=== PATIENT | female | born 1990 | race Caucasian/White ===

== ENCOUNTER 2023-10-21 13:30 | Emergency (ER) | payer BC, SELFPAY ==
[2023-10-21 13:38] VITALS: BP 129/90
[2023-10-21 13:47] VITALS: BMI 20.4
[2023-10-21 14:11] LABS: % Basophils 0.3 % (0-2); % Eosinophils 0.1 % (0-6); % Immature Granulocytes 0.5 % (0-0.5); % Lymphocytes 15.1 % (20.5-51.1); % Monocytes 4.4 % (1.7-9.3); % Neutrophils 79.6 % (42.2-75.2); Absolute Immature Granulocytes 0.1 10^3/uL (0-0.05); Absolute Lymphocytes 1.7 10^3/uL (1.2-3.4); Absolute Monocytes 0.5 10^3/uL (0.1-0.6); Hematocrit 39.7 % (37.0-47.0); Hemoglobin 13.4 g/dL (12.0-16.0); Mean Corp Hgb Conc. 33.8 g/dL (33.0-37.0); Mean Corpuscular Hgb 30.7 pg (27.0-31.0); Mean Corpuscular Volume 91.1 fL (81.0-99.0); Mean Platelet Volume 10.5 fL (7.4-10.4); Nucleated Red Blood Cells % 0 %; Platelet Count 248 10^3/uL (130-400); Red Blood Cell Count 4.36 10^6/uL (4.20-5.40); Red Cell Dist. Width 12.5 % (11.5-14.5); White Blood Cell Count 11.3 10^3/uL (4.8-10.8)
[2023-10-21 14:21] LABS: Urine Albumin Trace (Neg - Trace); Urine Bilirubin Negative (Negative); Urine Character Clear (Clear); Urine Glucose Negative (Negative); Urine Ketone 3+ (Negative); Urine Leukocyte 2+ (Negative); Urine Nitrite Positive (Negative); Urine Occult Blood 3+ (Negative); Urine Urobilinogen Negative (Neg - 1+)
[2023-10-21 14:36] LABS: Urine Color Yellow
[2023-10-21 15:09] LABS: HCG, Serum Qualitative Screen Negative; Urine Bacteria Many (Negative); Urine Red Blood Cell 26-30 /HPF (0-2); Urine White Cell >100 /HPF (0-5)
[2023-10-21 15:42] LABS: ALT (SGPT) 17 U/L (0-35); AST (SGOT) 30 U/L (14-36); Albumin 4.6 g/dl (3.5-5.0); Alkaline Phosphatase 75 U/L (38-126); Blood Urea Nitrogen 14 mg/dl (7-17); Calcium 9.5 mg/dl (8.4-10.2); Carbon Dioxide 22 mmol/L (22-30); Chloride 103 mmol/L (98-107); Estimated Creatinine Clearance 97 ml/min; Glucose 79 mg/dl (70-99); Sodium 140 mmol/L (135-145); Total Bilirubin 0.9 mg/dl (0.2-1.3); Total Protein 7.4 g/dl (6.3-8.2); eGFR > 60.00
--- NOTE | 2023-10-21 15:45 | ED.GENMED ---
History of Present Illness
General
Chief Complaint: Abdominal Pain
Time Seen by Provider: 10/21/23 15:09
History of Present Illness
History of Present Illness:
Patient is a 33-year-old woman who is otherwise healthy presenting to the emergency department with pelvic pain. Patient states for the past 2 days she has been having pelvic pressure. Has been constant. She thought was beginning of a UTI so she
did take Azo. She also took Motrin with significant relief. She is having some urinary urgency. Her last period was on September 30. No fevers or chills. No nausea no vomiting. No vaginal discharge. She is a sexually active with her only.
She went to medical aid unit today who checked her urine and said it was negative for UTI. They were worried about her ovaries and told her to come to the emergency department for further evaluation. Patient states that the pain is back to being
midline. She denies any right lower left lower quadrant pain. This is never happened to her before. No spasming sensation.
Phy Exam
Physical Exam
Physical Exam:
GENERAL: in no acute distress
HEENT: normocephalic, extraocular movements intact, moist oral mucosa
NECK: normal inspection
RESPIRATORY: no respiratory distress, clear to auscultation bilaterally
CARDIOVASCULAR: regular rate and rhythm
ABDOMEN/: soft, non-distended, suprapubic tenderness no rebound or guarding, left CVA tenderness
EXTREMITIES: non-tender, no edema/swelling
NEUROLOGIC: awake and alert, moves all extremities
SKIN: warm
Course
Orders/Labs/Results
Orders:
Orders
10/21/23 13:41
Test Result ONCE
10/21/23 14:03
Complete Blood Count/With Diff Urgent
Comprehensive Metabolic Panel Urgent
HCG, Serum Qualitative Screen Urgent
Urinalysis Reflex To Culture Urgent
Date Specimen was Collected: 10/21/23
Time Specimen was Collected: 13:56
Urine Microscopic Reflex Cult Urgent
Urine Culture Urgent
ANDRES Source: U
Specimen Description:
Date Specimen was Collected: 10/21/23
Time Specimen was Collected: 13:56
10/21/23 15:19
CT Abd/pelvis W Iv Cont Urgent
Comment:
Reason For Exam: cva tenderness, urinary symptoms
10/21/23 17:29
Cephalexin Monohydrate [Keflex] 500 mg PO NOW STA
Abnormal Lab Results
10/21/23
14:03
WBC 11.3 H 10^3/uL
(4.8-10.8)
MPV 10.5 H fL
(7.4-10.4)
Abs Immat Gran (auto) 0.1 H 10^3/uL
(0-0.05)
Absolute Neuts (auto) 9.0 H 10^3/uL
(1.4-6.5)
Neutrophils % 79.6 H %
(42.2-75.2)
Lymphocytes % 15.1 L %
(20.5-51.1)
Urine Ketones 3+ A
(Negative)
Ur Occult Blood Reflex 3+ A
(Negative)
Urine Nitrite (Reflex) Positive A
(Negative)
Leukocyte Esterase Rfl 2+ A
(Negative)
Urine RBC 26-30 A /HPF
(0-2)
Urine WBC (Reflex) >100 A /HPF
(0-5)
Urine Bacteria (Reflex) Many A
(Negative)
10/21/23 14:03
10/21/23 14:03
Vital Signs
Initial and Last Documented VS:
Initial Vital Signs
Temp Pulse Resp BP Pulse Ox
98.7 F 95 18 129/90 98
10/21/23 13:38 10/21/23 13:38 10/21/23 13:38 10/21/23 13:38 10/21/23 13:38
Last Documented Vital Signs
Temp Pulse Resp BP Pulse Ox
98.7 F 83 16 125/79 97
10/21/23 13:38 10/21/23 16:09 10/21/23 16:09 10/21/23 16:09 10/21/23 16:09
MDM/Problems Addressed
Differential Diagnosis Includes:
Patient is a 33-year-old woman who is otherwise healthy presenting to the emergency department 2 days of pelvic pain. Vitals here are notable for being afebrile. Exam does show suprapubic tenderness with left-sided CVA tenderness. Differential
consists of UTI versus Dat versus kidney stone versus . Considered ovarian pathology however less likely given that the pain is mostly suprapubic. Will obtain bladder including test urine. After shared decision making we will
obtain CT to evaluate kidney stone. Will hold off on pelvic ultrasound. I did offer pain medication however patient denied this time.
*Critical Care Note
Total Time (30-74mins, 75-104mins- exclusive of procedures): Not Applicable
Update Note
Update Note:
CT scan negative. On reevaluation patient resting comfortably. Pain has much improved. Urine does not appear infected. Will treat as UTI with Keflex. Will give first dose of antibiotics here. Strict return precautions given
ED Attending Note
-
Portions of this chart may have been created with voice recognition software.� Occasional wrong word or��sound alike� substitutions may have occurred due to the inherent limitations of voice recognition software.
Discharge Plan
Departure
Patient Disposition: Home (Routine Discharge)
Date of Disposition: 10/21/23
Time of Disposition: 18:00
Patient with high blood pressure during this ER visit?: No
Discharge Problem:
UTI (urinary tract infection)
Instructions: Urinary Tract Infection, Adult ED
Prescriptions:
New
cephalexin 500 mg capsule
500 mg PO QID 5 Days Qty: 20 0RF
Referrals:
Hali Jones DO [Family Provider] -
Activity Restrictions/Additional Instructions:
You were seen in the Emergency Department today for a urinary tract infection. While you were here we did start you on antibiotics
We would like for you to follow up with your primary care physician for further evaluation. If you experience fever, worsening of your symptoms, or develop any other new or concerning symptoms, please return to the Emergency Department immediately.
Please see the attached sheet for additional information.
Interventions
Interventions:
*Risk Screen - Suicide Last Done: 10/21/23 13:48
*General Assessment Last Done: 10/21/23 13:48
*Neglect/Abuse Screening Last Done: 10/21/23 13:48
ED- Fall Risk Assessment Last Done: 10/21/23 13:48
*ED COVID-19 Vaccine History Last Done: 10/21/23 13:48
*Nursing Disposition Last Done: 10/21/23 18:03
FJ-Ctckex-Vocnqolhgg Assessment Last Done: 10/21/23 13:48
Discharge Date and Time
Print Language: HAITIAN
[2023-10-21 16:09] VITALS: BP 125/79
[2023-10-21] MEDS: KEFLEX 500 MG PO (17:58)
== END 2023-10-21 18:05 | disposition home or self-care (01) ==
LOC: EMR 13:30
PROVIDERS: Emergency Medicine; Student in an Organized Health Care Education/Training Program; EMERGENCY PHYSICIAN Student in an Organized Health Care Education/Training Program; FAMILY PHYSICIAN Family Medicine
DX: N39.0 Urinary tract infection, site not specified (principal)
CPT/HCPCS: 99284; 74177; 80053; 81003; 81015; 84703; 85025; 87077; 87086; 87186; Q9967

== ENCOUNTER → 2024-01-14 08:37 | Outpatient (REF) | payer BC, SELFPAY | LOC: RAD 08:37 | PROVIDERS: ATTENDING PHYSICIAN Family Medicine | DX: R05.2 Subacute cough (principal); R06.2 Wheezing; Z86.16 Personal history of COVID-19 | CPT/HCPCS: 71046 ==

== ENCOUNTER → 2024-07-14 14:24 | Outpatient (REF) | payer BC, SELFPAY | LOC: CLAB 14:24 | PROVIDERS: ATTENDING PHYSICIAN Physician Assistant Medical | DX: R39.9 Unspecified symptoms and signs involving the genitourinary system (principal) | CPT/HCPCS: 87086 ==

== ENCOUNTER 2024-10-25 16:34 | Emergency (ER) | payer SELFPAY ==
[2024-10-25 16:37] VITALS: BP 118/87
--- NOTE | 2024-10-25 17:40 | ED.MUSCINJ ---
HPI-Injury
General
Chief Complaint: Musculo-Skeletal Complaint
Source: patient
Exam Limitations: none
Time Seen by Provider: 10/25/24 16:56
Nursing documentation reviewed up to this point in time: agreed with
History of Present Illness-Injury
Is this injury a work related problem?: Yes
Is pt an associate of [facility]?: Yes
Initial Injury comments:
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
and it ran over her left great toe.
Past History
Past History
ED Past Medical History: None
Social History
Tobacco: Non-smoker
Personal:
Living: with family
Employment: Employed
Review of Systems
Review of Systems
Allergies reviewed?: Yes
All Other Systems: ROS reviewed and negative except as documented in HPI and ROS
Musculoskeletal Injury Exam
Musculoskeletal Injury Exam
Left great toe:
Pain with Movement?: None
Tender to palpation?: Mild
Soft tissue swelling?: None
Contusion?: Mild
Malalignment/deformity?: No
Range of motion: Full
Phy Exam
Physical Exam
Physical Exam:
PHYSICAL EXAMINATION:
General: no apparent distress, not acutely ill
Neuro: alert and oriented.
Psychiatric: well kept. interactive and cooperative
Musculoskeletal: Moves with ease
Skin: Warm, pink.
Injury Course
Orders/Labs/Results
Orders:
Orders
10/25/24 16:39
Foot, Left 3 View [CR Foot - Left Min 3 Views] Urgent
Comment: bed rolled over toes while at work
Reason For Exam: left foot pain
MDM/Problems Addressed
MDM/Problems Addressed:
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
and it ran over her left great toe.
X-ray left great toe negative
Patient is ambulating well, okay to work her next shift.
*Pulse Oximetry
SaO2: 100
Oxygen Mode of Delivery: Room air
Patient hypoxic: not evaluated
*Critical Care Note
Total Time (30-74mins, 75-104mins- exclusive of procedures): Not Applicable
ED Attending Note
-
Portions of this chart may have been created with voice recognition software.� Occasional wrong word or��sound alike� substitutions may have occurred due to the inherent limitations of voice recognition software.
Discharge Plan
Departure
Patient Disposition: Home (Routine Discharge)
Date of Disposition: 10/25/24
Time of Disposition: 17:39
Patient with high blood pressure during this ER visit?: No
Condition: Good
Discharge Problem:
Contusion of great toe of left foot
Instructions: Contusion (DC)
Prescriptions:
No Action
cephalexin 500 mg capsule
500 mg PO QID 5 Days Qty: 20 0RF
Referrals:
Occupational Health- [Outside] - Tomorrow
Lindy Linares PA [Family Provider, Family Practice]
Activity Restrictions/Additional Instructions:
As we discussed, your x-ray shows nothing is broken.
Call occupational health tomorrow for follow up
You may return to work on your next workday
Interventions
Interventions:
*Risk Screen - Suicide Last Done: 10/25/24 16:36
*General Assessment Last Done: 10/25/24 16:38
*Neglect/Abuse Screening Last Done: 10/25/24 16:36
*ED- Fall Risk Assessment Last Done: 10/25/24 16:38
*ED COVID-19 Vaccine History Last Done: 10/25/24 16:38
*Nursing Disposition Last Done: 10/25/24 17:52
ED-Musculoskeletal Assessment Last Done: 10/25/24 16:39
Discharge Date and Time
Discharge Date/Time: 10/25/24 17:53
Print Language: BAHAMIAN
== END 2024-10-25 17:53 | disposition home or self-care (01) ==
LOC: EMR 16:34
PROVIDERS: EMERGENCY PHYSICIAN Emergency Medicine; FAMILY PHYSICIAN Physician Assistant Medical
DX: S90.112A Contusion of left great toe without damage to nail, initial encounter (principal); V98.8XXA Other specified transport accidents, initial encounter; Y92.239 Unspecified place in hospital as the place of occurrence of the external cause; Y99.0 Civilian activity done for income or pay
CPT/HCPCS: 99283; 73630

== ENCOUNTER → 2024-11-05 10:45 | Outpatient (REF) | payer BC, SELFPAY ==
[2024-11-05 12:09] LABS: ALT (SGPT) 23 U/L (0-35); AST (SGOT) 25 U/L (14-36); Albumin 4.8 g/dl (3.5-5.0); Alkaline Phosphatase 51 U/L (38-126); Blood Urea Nitrogen 12 mg/dl (7-17); Calcium 9.8 mg/dl (8.4-10.2); Carbon Dioxide 23 mmol/L (22-30); Chloride 107 mmol/L (98-107); Glucose 87 mg/dl (70-99); HDL Cholesterol 88 mg/dl; LDL Cholesterol, Calculated 91 mg/dl; Potassium 4.4 mmol/L (3.5-5.1); Sodium 137 mmol/L (135-145); Total Protein 7.7 g/dl (6.3-8.2); Very Low Density Lipoprotein 9 mg/dl (0-30); eGFR > 60.00
[2024-11-05 12:39] LABS: TSH 2.29 uIU/ml (0.47-4.68)
[2024-11-05 13:12] LABS: Hematocrit 41.6 % (37.0-47.0); Hemoglobin 14.4 g/dL (12.0-16.0); Mean Corp Hgb Conc. 34.6 g/dL (33.0-37.0); Mean Corpuscular Volume 90.0 fL (81.0-99.0); Nucleated Red Blood Cells % 0 %; Platelet Count 222 10^3/uL (130-400); Red Cell Dist. Width 12.1 % (11.5-14.5)
== END ==
LOC: REG 10:45
PROVIDERS: ATTENDING PHYSICIAN Physician Assistant Medical
DX: Z00.00 Encounter for general adult medical examination without abnormal findings (principal)
CPT/HCPCS: 36415; 80053; 80061; 84443; 85025

== ENCOUNTER → 2024-11-23 12:47 | Outpatient (REF) | payer BC, SELFPAY | LOC: CLAB 12:47 | PROVIDERS: ATTENDING PHYSICIAN Obstetrics & Gynecology | DX: Z32.01 Encounter for pregnancy test, result positive (principal) | CPT/HCPCS: 87491; 87591 ==

== ENCOUNTER → 2024-11-25 08:24 | Outpatient (REF) | payer BC, SELFPAY ==
[2024-11-25 09:33] LABS: Hematocrit 42.0 % (37.0-47.0); Hemoglobin 14.1 g/dL (12.0-16.0); Mean Corp Hgb Conc. 33.6 g/dL (33.0-37.0); Mean Corpuscular Volume 89.4 fL (81.0-99.0); Nucleated Red Blood Cells % 0 %; Platelet Count 252 10^3/uL (130-400); Red Cell Dist. Width 12.1 % (11.5-14.5)
[2024-11-25 09:40] LABS: Urine Character Clear (Clear)
[2024-11-25 09:47] LABS: Urine Red Blood Cell 0-2 /HPF (0-2); Urine Squamous Cell 16-20 /LPF (Few)
[2024-11-25 09:48] LABS: Urine White Cell 0-2 /HPF (0-5)
[2024-11-25 10:41] LABS: Glycohemoglobin (HgbA1c) 4.9 % (4.0-5.6)
[2024-11-25 11:50] LABS: Beta HCG Quantitative 176220.00 mIU/ml
[2024-11-25 12:14] LABS: Hepatitis C Antibody Negative (Negative)
[2024-11-25 12:21] LABS: Hepatitis B Surface Antigen Negative (Negative)
[2024-11-25 13:11] LABS: Syphilis/T. pallidum Ab Reflex Negative (Negative)
== END ==
LOC: REG 08:24
PROVIDERS: ATTENDING PHYSICIAN Obstetrics & Gynecology; FAMILY PHYSICIAN Physician Assistant Medical
DX: Z32.01 Encounter for pregnancy test, result positive (principal)
CPT/HCPCS: 36415; 81003; 81015; 81220; 81243; 83036; 84702; 85025; 86015; 86704; 86706; 86762; 86780; 86803; 86850; 86900; 86901; 87086; 87340; 87389

== ENCOUNTER → 2024-12-13 08:21 | Outpatient (REF) | payer BC, SELFPAY | LOC: WDC 08:21 | PROVIDERS: ATTENDING PHYSICIAN Obstetrics & Gynecology; FAMILY PHYSICIAN Physician Assistant Medical | DX: N63.23 Unspecified lump in the left breast, lower outer quadrant (principal) | CPT/HCPCS: 76642 ==

== ENCOUNTER → 2025-01-02 08:55 | Outpatient (REF) | payer BC, SELFPAY | LOC: PNTC 08:55 | PROVIDERS: ATTENDING PHYSICIAN Obstetrics & Gynecology | DX: Z36.0 Encounter for antenatal screening for chromosomal anomalies (principal); Z36.82 Encounter for antenatal screening for nuchal translucency | CPT/HCPCS: 36415; 76801; 76813 ==

== ENCOUNTER → 2025-01-31 10:06 | Outpatient (REF) | payer BC, SELFPAY | LOC: REG 10:06 | PROVIDERS: ATTENDING PHYSICIAN Student in an Organized Health Care Education/Training Program; FAMILY PHYSICIAN Physician Assistant Medical | DX: Z34.92 Encounter for supervision of normal pregnancy, unspecified, second trimester (principal) | CPT/HCPCS: 36415; 82105 ==

== ENCOUNTER → 2025-02-20 15:47 | Outpatient (REF) | payer BC, SELFPAY | LOC: PNTC 15:47 | PROVIDERS: ATTENDING PHYSICIAN Obstetrics & Gynecology | DX: Z36.3 Encounter for antenatal screening for malformations (principal); Z36.86 Encounter for antenatal screening for cervical length; Z36.2 Encounter for other antenatal screening follow-up | CPT/HCPCS: 76805; 76817; 93976 ==